=== PATIENT | male | born 2000 | race Caucasian/White ===

== ENCOUNTER 2021-07-09 09:30 | Outpatient (REF) | payer BC, SELFPAY ==
[2021-07-09 12:17] LABS: Influenza A PCR NEGATIVE (Negative); Influenza B PCR NEGATIVE (Negative); Resp Syncy Virus RNA Qual PCR NEGATIVE (Negative); SARS COV2 PCR INHOUSE NEGATIVE (Negative)
== END 2021-07-09 09:31 | disposition home or self-care (01) ==
LOC: HO.LAB 09:30
PROVIDERS: Visit Provider Hospitalist
DX: Z20.822 Contact with and (suspected) exposure to COVID-19 (principal); J02.8 Acute pharyngitis due to other specified organisms; B97.89 Other viral agents as the cause of diseases classified elsewhere
CPT/HCPCS: 0241U